=== PATIENT | female | born 1985 ===

== ENCOUNTER → 2017-10-29 12:57 | Outpatient (CLI) | payer OTHER ==
[~2017-10-29] VITALS: Ht 152.4 cm; Wt 76.2 kg
[~2017-10-29 12:57] MED LIST: ALLEGRA ALLERG180 MG PO; GILTUSS LIQUID237 M1; GILTUSS TR TAB1 EACH PO; OSEL75CA; ZITHROMAX200 MG PO
== END | disposition home or self-care (01) ==
LOC: PPHC 12:57
DX: R09.81 Nasal congestion (principal)